=== PATIENT | female | born 1945 | race Caucasian/White ===

== ENCOUNTER 2024-04-28 19:30 | Observation (INO) | payer MEDICARE ==
[~2024-04-28] VITALS: Ht 170.2 cm; Wt 81.6 kg
[~2024-04-28 19:30] MED LIST: ANTIVERT 25MG25 MG PO; ASPIRIN 81M81 MG/TA2 PO; ATIVAN 1MG T1 MG/TAB PO; COREG 3.123.125 MG/T; COREG12.5 MG PO; Carvedilol 6.25 MG TAB PO SCH; GLUCOPHAGE1000 MG PO; PREMARIN 0.9MG0.9 MG; TYLENOL 325MG325 MG PO; VALIUM 5MG T5 MG/TAB PO; ZESTORETIC 12.51 TAB PO
[2024-04-28 21:19] LABS: BASO # 0.1 K/mm3 (0.0-0.2); BASO % 0.4 % (0.0-2.0); EOS # 0.5 K/mm3 (0.0-0.7); EOS % 3.1 % (0.0-4.0); GRAN # 11.6 K/mm3 (1.4-6.5); GRAN % 75.6 % (42.2-75.2); HEMATOCRIT 37.5 % (37.0-47.0); HEMOGLOBIN 12.2 g/dl (12.5-16.0); LYMPH # 1.9 K/mm3 (1.2-3.4); LYMPH % 12.6 % (20.0-51.0); MEAN CELL VOLUME 83 fl (80.0-100.0); MEAN CORPUSCULAR HEMOGLOBIN 27 pg (27-31); MEAN CORPUSCULAR HGB CONC 33 g/dl (33.0-37.0); MEAN PLATELET VOLUME 10.9 fl (7.4-10.4); MONO # 1.2 K/mm3 (0.1-0.6); MONO % 7.8 % (1.7-9.3); PLATELET COUNT 333 K/mm3 (130-400); RED BLOOD COUNT 4.53 M/mm3 (4.10-5.30); REDCELL DISTRIBUTION WIDTH-CV 14.5 % (11.5-14.5)
[2024-04-28 21:41] LABS: ALANINE AMINOTRANSFERASE 7 U/L (0-55); ALBUMIN 3.8 g/dL (3.4-4.8); ALKALINE PHOSPHATASE 69 U/L (40-150); ANION GAP 13 mmol/L (7-16); AST,SGOT 12 U/L (5-34); BILIRUBIN,TOTAL 0.3 mg/dL (0.2-1.2); BLOOD UREA NITROGEN 17 mg/dL (10-20); CHLORIDE 103 mEq/L (98-107); GLUCOSE 146 mg/dL (70-99); POTASSIUM 3.9 mEq/L (3.5-4.5); SODIUM 138 mEq/L (136-145); TOTAL PROTEIN 8.1 g/dl (6.2-8.1)
[2024-04-28 22:07] LABS: COLLECTION METHOD CLEAN CATCH
[2024-04-28 22:08] LABS: TROPONIN-I < 0.010 ng/mL (0.00-0.033)
[2024-04-28 22:21] LABS: URINE APPEARANCE CLEAR (CLEAR/HAZY); URINE BLOOD NEGATIVE (NEGATIVE); URINE COLOR YELLOW (YELLOW); URINE GLUCOSE NEGATIVE (NEGATIVE); URINE KETONE NEGATIVE (NEGATIVE); URINE NITRATE NEGATIVE (NEGATIVE); URINE PROTEIN(semi-quant) NEGATIVE (NEGATIVE); URINE UROBILINOGEN 0.2 E.U/dL (0.2-1.0)
[2024-04-28] MEDS ORDERED: DIOVAN HCT 12.51 TA2 PO (22:49)
[2024-04-28] MEDS ORDERED: PRILOSEC 20MG20 MG PO (22:49)
[2024-04-28] MEDS ORDERED: ATIVAN2 MG PO (22:50)
[2024-04-28] MEDS ORDERED: LIPITOR 10MG10 MG PO (23:27)
[2024-04-28] MEDS ORDERED: GLUCOPHAGE XR500 M1 PO (23:28)
[2024-04-28] MEDS ORDERED: Atorvastatin 10 MG TAB PO SCH (23:28)
[2024-04-28] MEDS ORDERED: Acetaminophen 325 MG TAB PO PRN (23:30)
[2024-04-28] MEDS ORDERED: LORazepam 1 MG TAB PO SCH (23:45)
[2024-04-28] MEDS ORDERED: Carvedilol 6.25 MG TAB PO SCH (23:45)
[2024-04-29 00:36] VITALS: BP 120/72; PULSE 108; TEMP 98.3
[2024-04-29] MEDS ORDERED: Acetaminophen 325 MG TAB PO PRN (00:45)
[2024-04-29] MEDS ORDERED: NS 1,000 ML IV SCH (00:45)
[2024-04-29] MEDS ORDERED: cefTRIAXone 1 G in Water For Injection,Sterile 10 ML IV SCH (00:45)
--- NOTE | 2024-04-29 00:47 | NUR ---
THE PATIENT ARRIVED VIA WC FROM THE ED ACCOMPANIED BY ED NURSE. THE PATIENT WAS ALERT AND ORIENTED. THE PATIENT IS A HIGH FALL RISK D/T HER DIZZINESS. SHE WAS PLACED IN A YELLOW GAIN AND FALL RISK BRACELET PLACED WITH FALL RISK SIGN ON DOOR. VITAL SIGNS STABLE. CALL LIGHT WITHIN REACH.
[2024-04-29] MEDS ORDERED: Glucagon 1 MG VIAL IM PRN (01:30)
[2024-04-29] MEDS ORDERED: Dextrose 50% Water 25 GM/50 ML SYRINGE IV PRN (01:30)
[2024-04-29] MEDS ORDERED: Dextrose (Glucose) 15 GM (4 x 3.75 GM) Chewable TABLET PACK PO PRN (01:30)
[2024-04-29 04:03] VITALS: BP 118/75; PULSE 77; TEMP 98.6
[2024-04-29] MEDS ORDERED: Insulin Lispro (HumaLOG) SQ SCH (06:00)
[2024-04-29] MEDS ORDERED: Omeprazole 20 MG **** subs to Pantoprazole 40 MG PO SCH (07:00)
[2024-04-29 07:21] VITALS: BP 137/72; PULSE 79; TEMP 98.4
--- NOTE | 2024-04-29 08:00 | NUR ---
SHIFT ASSESSMENT COMPLETE. PATIENT RESTING IN BED, NPO STATUS AWAITING TO GO DOWN FOR A MRI. PATIENT STATES NO PAIN THIS AM BUT STILL FEELING DIZZY OFF AND ON AND WHEN MOVING TO QUICKLY TO GET UP OUT OF BED. ALL MORNING MEDS GIVEN PER ORDERS. PATIENT HAS NO OTHER REQUEST AT THIS TIME. FALL PRECAUTIONS IN PLACE AND CALL LIGHT IN REACH
[2024-04-29] MEDS ORDERED: FLONASE NASAL S16 GM NS (09:04)
--- NOTE | 2024-04-29 10:47 | NUR ---
Initial visit; Patient thanked Media Sales Consultant for looking in on her and keeping her in Media Sales Consultant's prayers. Patient has a spot on her braing and prays it is not malignant. 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 Media Sales Consultant will keep Minnie in her prayers and will pray for a clean bill of health.
[2024-04-29] MEDS ORDERED: Gadoterate 20 ML VIAL IV ONE (11:21)
[2024-04-29 12:16] VITALS: BP 134/83; PULSE 92; TEMP 97.8
--- NOTE | 2024-04-29 12:33 | NUR ---
SW met with patient at bedside to complete initial assessment for discharge planning. Patient's daughter, Valentine Cuadra ([phone]) at bedside and participated in conversation. Patient verified that she lives at home in [place] with her Alireza [phone]). Patient reports that she sees Dr. Gordon as her PCP and uses [facility]. 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 Daughter states she can bring a copy for patient's chart. Patient denies using any DME at home. 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 Discussed options to ensure that is cared for safely at home, which daughter will follow up on. Plan is for patient to return home at time of discharge. Discharge plan: Home
[2024-04-29 13:00] VITALS: BP_SYST 134
--- NOTE | 2024-04-29 16:04 | NUR ---
PATIENT RECEIVED DISCHARGE ORDERS TO GO HOME. ALL DISCHARGE INSTRUCTIONS GIVEN AND QUESTIONS ANSWERED BY THIS NURSE, PATIENT AND FAMILY ACCEPTING.
== END 2024-04-29 16:13 | disposition home or self-care (01) ==
LOC: COL.ER 19:30 → SURG 22:34
PROVIDERS: Emergency Medicine; ADMIT Internal Medicine
DX: G93.89 Other specified disorders of brain (principal); M85.88 Other specified disorders of bone density and structure, other site; R65.10 Systemic inflammatory response syndrome (SIRS) of non-infectious origin without acute organ dysfunction; D64.9 Anemia, unspecified; E87.20 Acidosis, unspecified; I10 Essential (primary) hypertension; E78.5 Hyperlipidemia, unspecified; E11.9 Type 2 diabetes mellitus without complications; Z79.84 Long term (current) use of oral hypoglycemic drugs; Z79.899 Other long term (current) drug therapy
CPT/HCPCS: A9575; G0378; J0696; J7030